=== PATIENT | male | born 1990 | race Two or more races ===

== ENCOUNTER 2019-03-13 15:08 | Emergency (ER) | payer MEDICAID ==
[~2019-03-13] VITALS: Ht 165.1 cm; Wt 63.5 kg
--- NOTE | 2019-03-13 15:25 | NUR ---
C/O BODY PAIN STARTED LAST NIGHT 05/22 PS. PATIENT A/OX4, BREATHING EVEN AND UNLABORED, NO SOB NOTED, PLACED ON THE MONITOR, GF AT BEDSIDE.
[2019-03-13] MEDS ORDERED: IV NS 0.9% 1,000 ML BAG IV ONE (15:30)
[2019-03-13] MEDS ORDERED: ONDANSETRON HCL/PF 4 MG/2 ML VIAL IVP ONE (15:30)
[2019-03-13] MEDS ORDERED: HYDROMORPHONE INJ 2 MG/ML DISP.SYRIN IV ONE (15:30)
[2019-03-13 15:35] LABS: BASOPHILS # (AUTO) 0.2 /CMM (0.0-0.2); BASOPHILS % (AUTO) 2.5 % (0.0-2.0); EOSINOPHILS % (AUTO) 0.5 % (0.0-6.0); HEMATOCRIT 37 % (39-51); HEMOGLOBIN 12.1 g/dL (13.5-17.5); LYMPHOCYTES # (AUTO) 0.5 /CMM (0.8-4.8); MEAN CORPUSCULAR HGB CONC 33 g/dl (31.0-36.0); MEAN CORPUSCULAR VOLUME 78 fL (80-96); MONOCYTES # (AUTO) 0.5 /CMM (0.1-1.30); MONOCYTES % (AUTO) 6.3 % (2.0-12.0); NEUTROPHILS # (AUTO) 6.2 /CMM (1.8-8.9); NEUTROPHILS % (AUTO) 83.7 % (43.0-81.0); PLATELET COUNT (AUTO) 172 /CMM (150-450); RED BLOOD CELL COUNT(AUTO) 4.76 MIL/uL (4.5-6.0); WHITE BLOOD COUNT (AUTO) 7.4 K/uL (4.3-11.0)
[2019-03-13] MEDS ORDERED: HYDROMORPHONE 1 MG/1 ML DISP.SYRIN ONE ×3 (15:35→17:02)
[2019-03-13] MEDS ORDERED: ONDANSETRON HCL/PF 4 MG/2 ML VIAL ONE (15:35)
[2019-03-13 15:49] LABS: ALANINE AMINOTRANSFERASE 25 U/L (12-78); ALBUMIN 4.2 g/dL (3.4-5.0); ALKALINE PHOSPHATASE 73 U/L (46-116); ASPARTATE AMINOTRANSFERASE 18 U/L (15-37); BILIRUBIN,DIRECT 0.2 mg/dL (0.0-0.2); CALCIUM, SERUM 9.3 mg/dL (8.5-10.1); CARBON DIOXIDE 26 mmol/L (21-32); CHLORIDE 104 mmol/L (98-107); GLUCOSE 105 mg/dL (74-106); POTASSIUM 3.6 mmol/L (3.5-5.1); SODIUM SERUM 139 mmol/L (136-145); TOTAL PROTEIN, SERUM 7.6 g/dL (6.4-8.2); UREA NITROGEN, BLOOD 7 mg/dL (7-18)
[2019-03-13] MEDS ORDERED: HYDROMORPHONE 1 MG/1 ML DISP.SYRIN IV ONE ×2 (17:00)
--- NOTE | 2019-03-13 17:22 | NUR ---
Rx provided, PIV removed, Patient discharged to home in stable condition. Written and verbal after care instructions given. Patient verbalizes understanding of instruction.
[2019-03-13 17:24] VITALS: BP 132/84
[2019-03-14] MEDS ORDERED: PROM6.2516 PO (09:29)
[2019-03-14] MEDS ORDERED: FOLI1TAB16 PO (09:29)
[2019-03-14] MEDS ORDERED: OXYC15TA2 PO (09:29)
[2019-03-14] MEDS ORDERED: HYDR500C2 PO (09:29)
== END 2019-03-13 17:24 | disposition home or self-care (01) ==
LOC: ER 15:16
DX: D57.80 Other sickle-cell disorders without crisis (principal); F12.10 Cannabis abuse, uncomplicated; R00.0 Tachycardia, unspecified; Z88.9 Allergy status to unspecified drugs, medicaments and biological substances
CPT/HCPCS: 36415; 71045; 80048; 80076; 84484; 85025; 85045; 93005; 96374; 96375; 96376; 99284; J1170 ×3; J2405

== ENCOUNTER 2019-03-14 07:58 | Inpatient (IN) | payer MEDICAID ==
[~2019-03-14] VITALS: Ht 165.1 cm; Wt 62.1 kg
--- NOTE | 2019-03-14 08:10 | NUR ---
GENERALIZED BODY ACHES X 2 DAYS, SEEN HERE LAST NIGHT FOR SAME REASON IM HAVING "SICKLE CELL FLARE UP" PATIENT A/OX4. NO DISTRESS NOTED, KEPT COMFORTABLE. WILL CONTINUE TO MONITOR. MD AT BEDSIDE FOR EVAL.
[2019-03-14] MEDS ORDERED: ONDANSETRON HCL/PF 4 MG/2 ML VIAL ONE ×2 (08:14→09:20)
[2019-03-14] MEDS ORDERED: HYDROMORPHONE 1 MG/1 ML DISP.SYRIN ONE (08:14)
[2019-03-14] MEDS ORDERED: KETOROLAC TROMETHAMINE 15 MG/ML VIAL ONE (08:28)
[2019-03-14] MEDS ORDERED: HYDROMORPHONE INJ 2 MG/ML DISP.SYRIN IV ONE (08:30)
[2019-03-14] MEDS ORDERED: KETOROLAC TROMETHAMINE INJ 30 MG/ML VIAL IV ONE (08:30)
[2019-03-14] MEDS ORDERED: IV NS 0.9% 1,000 ML BAG IV ONE (08:30)
[2019-03-14] MEDS ORDERED: ONDANSETRON HCL/PF 4 MG/2 ML VIAL IVP ONE ×2 (08:30→09:30)
[2019-03-14] MEDS ORDERED: FOLI1TAB16 PO (09:29)
[2019-03-14] MEDS ORDERED: HYDR500C2 PO (09:29)
[2019-03-14] MEDS ORDERED: PROM6.2516 PO (09:29)
[2019-03-14] MEDS ORDERED: OXYC15TA2 PO (09:29)
--- NOTE | 2019-03-14 09:33 | NUR ---
DR. LUCIANO MOMIN, ON-CALL FOR [employer].
[2019-03-14 09:36] LABS: BASOPHILS # (AUTO) 0.1 /CMM (0.0-0.2); EOSINOPHILS % (AUTO) 2.2 % (0.0-6.0); HEMATOCRIT 34 % (39-51); HEMOGLOBIN 11.4 g/dL (13.5-17.5); LYMPHOCYTES # (AUTO) 0.9 /CMM (0.8-4.8); MEAN CORPUSCULAR HGB CONC 33 g/dl (31.0-36.0); MEAN CORPUSCULAR VOLUME 77 fL (80-96); MONOCYTES # (AUTO) 0.5 /CMM (0.1-1.30); MONOCYTES % (AUTO) 11.6 % (2.0-12.0); NEUTROPHILS # (AUTO) 2.4 /CMM (1.8-8.9); NEUTROPHILS % (AUTO) 60.2 % (43.0-81.0); PLATELET COUNT (AUTO) 149 /CMM (150-450); RED BLOOD CELL COUNT(AUTO) 4.45 MIL/uL (4.5-6.0); WHITE BLOOD COUNT (AUTO) 3.9 K/uL (4.3-11.0)
[2019-03-14 09:42] LABS: CALCIUM, SERUM 8.6 mg/dL (8.5-10.1); CREATININE 0.9 mg/dL (0.6-1.3); POTASSIUM 3.5 mmol/L (3.5-5.1)
[2019-03-14] MEDS ORDERED: IV NS 0.9% 1,000 ML IV PRN (09:54)
[2019-03-14] MEDS ORDERED: Z GUARD REMEDY 2 OZ OINT TP PRN (10:00)
[2019-03-14] MEDS ORDERED: MAGNESIUM HYDROXIDE 30 ML UDC PO PRN (10:00)
[2019-03-14] MEDS ORDERED: ZOLPIDEM TARTRATE 5 MG TABLET PO PRN (10:00)
[2019-03-14] MEDS ORDERED: MAG HYDROX/AL HYDROX/SIMETH 30 ML UDC PO PRN (10:00)
[2019-03-14] MEDS ORDERED: ACETAMINOPHEN 325 MG TABLET PO PRN (10:00)
--- NOTE | 2019-03-14 10:23 | NUR ---
PATIENT TRANSFERRED TO ROOM 316-2 IN STABLE CONDITION.
[2019-03-14 10:30] VITALS: BP 154/78
[2019-03-14] MEDS: ONDANSETRON HCL/PF 4 MG/2 ML VIAL IVP PRN ×2 (10:53→23:13)
[2019-03-14] MEDS: HYDROMORPHONE INJ 2 MG/ML DISP.SYRIN IV PRN ×3 (10:54→20:46)
[2019-03-14] MEDS: Folic acid 1 MG in IV D5W 50 ML IV SCH (10:54)
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
[2019-03-14] MEDS ORDERED: HYDROCODONE/APAP 5/325MG 1 EACH TABLET PO PRN (14:30)
[2019-03-14 16:00] VITALS: BP_SYST 121; BP_SYST 139; BP_DIAS 80
--- NOTE | 2019-03-14 16:50 | NUR ---
RT Pt is awake and alert, pt refused EKG at this time.
[2019-03-14] MEDS ORDERED: oxyCODONE IR immediate release 5 MG PO PRN ×2 (17:30)
[2019-03-14] MEDS: HYDROXYUREA 500 MG CAPSULE PO SCH ×2 (17:30→18:01)
[2019-03-14] MEDS ORDERED: HYDROMORPHONE INJ 2 MG/ML DISP.SYRIN IV PRN (17:30)
--- NOTE | 2019-03-14 18:50 | NUR ---
RN NOTES ARCHITECTURAL DRAFTSMAN/RAJIV JUST SPOKE TO THE PT. RAJIV IS SPEAKING WITH CHARGE NURSE. CN AND ARCHITECTURAL DRAFTSMAN AWARE OF MD'S ORDERS AND PLANS. WILL CONTINUE TO MONITOR THE PT. PT IS ALSO FOR DR CAMACHO/PLATE STACKER CONSULT. WILL ENDORSE TO INCOMING NURSE FOR YARELI.
--- NOTE | 2019-03-14 19:09 | NUR ---
RN NOTES RN/ME JUST SPOKE TO NURSING DRIVER EDUCATION ROAD INSTRUCTOR/RAJIV REGARDING PT AND KYLER'S AGREEMENT REGARDING MEDICATIONS. PT IS NOW OKAY TO STICK WITH THE PLAN OF OXY [id number] PRN AND DILAUDID [id number] PRN AT THIS MOMENT. AND PT NOW STATING ZOFRAN IS NOT WORKING. RAJIV RECOMMENDED PROMETHAZINE FOR PT TO TAKE AN HOUR BEFORE OXYCODONE 15MG PRN. ED MADE AWARE, AWAITING FOR RESPONSE. DARRYL/ONEIDA MADE AWARE AND WILL ENDORSE TO INCOMING NIGHT NURSE.
--- NOTE | 2019-03-14 19:47 | NUR ---
MS RN CLOSING NOTES PT REMAINS IN BED RESTING. PT A/O X4. TOLERATING RA, WITH NO ACUTE RESPIRATORY DISTRESS NOTED. PT DOESN'T WANT TO PUT HIS O2 ON. STABLE AT RA. PT ON IVF NS AT 125ML/HR TO LAC G20, INTACT AND FLUID INFUSING WELL. PT ABLE TO MAKE NEEDS KNOWN. ALL NEEDS AND CARE ATTENDED. DURING ROOM ROUNDS/CHANGE OF SHIFT, PT DENIES PAIN AT THAT MOMENT. PT AWARE OF PLAN. PT KEPT COMFORTABLE. PT'S BED IN LOWEST, LOCKED POSITION WITH SR X2. ENDORSED TO GAS JOCKEY NURSE AND CN FOR YARELI.
[2019-03-14 20:00] VITALS: BP 137/82
--- NOTE | 2019-03-14 20:51 | NUR ---
dilaudid mariajose, patient complaints. patient complaining that he did not recieve his patient rights handbook upon admission. patient handbook located and given to patient. patient complains that he feels like he is being mistreated. states " I don't think its right how you have all been treating me. I feel like when I request to see a doctor, I should be able to see a doctor. I am gonna call my marina dry dock manager and he will be here in the am and he is going to know how you been mistreating me." patient informed that the doctors usually don't round at night. patient been complaining about pain management states his pain is not controlled. per report with Kaitlin mckenna these concerns were addressed and pain regiment was adjusted to what md wanted to order. pain management plan reviewed with patient. dilaudid administered as ordered. patient complains of pain 9/10 generalized pain. patient resting in bed alert oriented in no apparent distress. no sweating, no facial grimacing patient irritable. bed down locked call light in reach informed to call for assistance if needed.
--- NOTE | 2019-03-14 23:05 | NUR ---
shanika pichardo reports patient requesting to see me for nausea. patient seen in bed watching the door with eyes wide open with cheeks puffed out pointing at mouth patient iven emsis bin and patient spit out around 120 ml of clear liquid with white froth/spit. . patient reports he is feeling nauseous. patient reporting pain in abd 06/22. when patient offered zofran patient became silent and looked down. patient informed that if he is unable to respond I will have to come back. patient spoke up states "I just don't get it you guys dont care. I am here in pain and I am throwing up and you just aren't doing anything . still upset about pain management still reporting pain gen 06/22. aj studio operations engineer in charge in the room. reviewed pain management plan with patient. reviewed mediciations to help with nausea. patient agreeing to take the zofran for the nausea.
--- NOTE | 2019-03-14 23:13 | NUR ---
zofran prn. patient in a praying position in bed still reporting nauseas. patient states he is still feeling nauseous. zofran administered per md orders.
[2019-03-14] MEDS: IV NS 0.9% 1,000 ML IV PRN (23:31)
--- NOTE | 2019-03-14 23:33 | NUR ---
oxycodone prn patient reports having emesis. patient seen and administered oxycodone per md orders. for 9 gernalized pain. patient reporting that he threw up the medication in the bathroom shortly after medication being administered. patient sitting up in bed. patient did not save the emesis states he flushed it down toilte. patient informed if me as nurse am unable to see this emesis i cannot administer any additional doses.
--- NOTE | 2019-03-15 01:07 | NUR ---
patient seen resting in bed. has calm demeanor no apparent distress. offered sleep aid pill to help with sleeping patient refused. iv infusing. patient reports having emesis one time. 100 ml clear fluid found in emesis bag. reports pain medication was not very helpful. reviewed pain management plan with patient. verbalized understanding to call for assistance as needed.
--- NOTE | 2019-03-15 02:00 | NUR ---
TROPONIN BLOOD REFUSED. ONE PIECE EXPANSION MAKER HAND STATES THAT EARLIER PATIENT REFUSED TROPONIN BLOOD DRAW. BECAUSE IT WAS THE SECOND REFUSAL TEST WILL BE CANCELLED.
[2019-03-15] MEDS ORDERED: METOCLOPRAMIDE HCL 10 MG/2 ML VIAL IV PRN (02:30)
[2019-03-15] MEDS: HYDROMORPHONE INJ 2 MG/ML DISP.SYRIN IV PRN (02:33)
--- NOTE | 2019-03-15 02:54 | NUR ---
PAIN NAUSEA, PATIENT REQUESTING OXYCODONE BE DC'D PATIENT VOMITED X2 100 ML OF CLEAR LIQUID CAN BE HEARD RETCHING IN [address]. WHEN CONVERSING PATIENT APPERAS IN NO DISTRESS. PATIENT REQUESTING DILAUDID BE CHANGED BACK TO EVERY 4 HOURS AND TO DISCONTINUE THE OXYCODONE. REQUESTING PROMETHAZINE FOR VOMITING. PATIENT STARTES HES ALLERGIC TO REGLAN WHEN OFFERED. ALLERGIES UPDATED. MINA CONTACTED TO CHANGE PAIN MEDICINE AND ORDER FOR PROMETHAZINE NEW ORDERS RECIEVED.
[2019-03-15] MEDS ORDERED: PROMETHAZINE HCL 25 MG TABLET PO PRN (03:00)
[2019-03-15] MEDS ORDERED: PROMETHAZINE HCL 25 MG TABLET ONE (03:01)
--- NOTE | 2019-03-15 03:20 | NUR ---
PATIENT OFFERED PROMETHAZINE DOCTOR ORDERED. PATIENT HAD ANOTHER 100 ML OF CLEAR VOMIT WITH SPECKS OF BLOOD. PATIENT INFORMED WE SHOULD WAIT FOR HIM TO NOT HAVE ANY VOMITING BEFORE HE TAKES PROMETHAZINE SO IT CAN ABSORB. WHILE IN ROOM PATIENT BEGAN TO HUNCH OVER IN BED IN PRAYING POSITION. PATIENT MADE GROANING SOUNDS. PATIENT COMPLAINGING OF HAVING PAIN 06/22. PATIENT INFORMED THAT NO MORE PAIN MEDICATION WILL BE ABLE TO BE GIVEN ANY PAIN MEDICATION TILL IT WAS DUE AROUND 6:30 THIS AM. PATIENT UPSET AT THIS. PATIENT SAT UP IN BED RAISED HIS VOICE AND STATES "YOU DON'T KNOW WHAT THE FUCK YOUR DOING. YOU CANT CALL THE DOCTOR AND TELL THEM I AM IN PAIN. YOUR AN IDIOT! I KEEP TELLING YOU HOW TO TREAT MY SICKLE CELL BUT YOU ALL WONT DO IT." PATIENT INFORMED THAT I JUST CALLED THE DOCTOR AND HAD THE ORDERS CHANGED BACK TO HOW THEY WERE BEFORE. OXYCODONE WAS DISCONTINUED. HE CAN HAVE ANOTHER DOSE OF ZOFRAN LATER THIS AM. PATIENT INFORMED THAT I WILL HAVE TO RETURN WHEN HE CALMS DOWN AND SPEAK TO ME IN A NORMAL VOICE. CHARGE NURSE HALIE NOTIFIED.
--- NOTE | 2019-03-15 05:16 | NUR ---
PATIENT CHECKED CHECKED IN ON PATIENT. LIGHTS ARE OFF IV INFUSING. PATIENT IS RESTING QUITELY WITH COVERS OVER HEAD IN NO APPARENT DISTRESS. WILL CONT TO MONITOR.
[2019-03-15] MEDS: HYDROMORPHONE 1 MG/1 ML DISP.SYRIN IV PRN ×3 (06:15→14:39)
--- NOTE | 2019-03-15 06:20 | NUR ---
DILAUDID, PROMETHAZINE ADMINISTERED PATIENT REQUESTING DILAUDID FOR GEN PAIN OF 9/10 AND REPORTS HE IS MILDLY NAUSEOUS. DILUADID ADMINISTERED PER MD ORDERS AND PROMETHAZINE ADMINISTERED PER MD ORDERS AT PATIENTS REQUEST.
[2019-03-15 06:55] LABS: BASOPHILS % (AUTO) 0.6 % (0.0-2.0); EOSINOPHILS % (AUTO) 1.8 % (0.0-6.0); HEMATOCRIT 33 % (39-51); HEMOGLOBIN 10.7 g/dL (13.5-17.5); LYMPHOCYTES # (AUTO) 1.3 /CMM (0.8-4.8); LYMPHOCYTES % (AUTO) 35.7 % (20.0-44.0); MEAN CORPUSCULAR HGB CONC 32 g/dl (31.0-36.0); MEAN CORPUSCULAR VOLUME 78 fL (80-96); MONOCYTES # (AUTO) 0.3 /CMM (0.1-1.30); MONOCYTES % (AUTO) 8.9 % (2.0-12.0); NEUTROPHILS # (AUTO) 1.9 /CMM (1.8-8.9); PLATELET COUNT (AUTO) 146 /CMM (150-450); RED BLOOD CELL COUNT(AUTO) 4.27 MIL/uL (4.5-6.0); WHITE BLOOD COUNT (AUTO) 3.7 K/uL (4.3-11.0)
[2019-03-15 07:01] LABS: ALBUMIN 3.9 g/dL (3.4-5.0); BILIRUBIN,TOTAL 1.8 mg/dL (0.2-1.0); CALCIUM, SERUM 8.8 mg/dL (8.5-10.1); CREATININE 0.9 mg/dL (0.6-1.3); PHOSPHORUS 3.5 mg/dL (2.5-4.9); POTASSIUM 3.4 mmol/L (3.5-5.1); TOTAL PROTEIN, SERUM 6.9 g/dL (6.4-8.2)
[2019-03-15 08:00] VITALS: BP 115/71
--- NOTE | 2019-03-15 08:20 | NUR ---
MS RN NOTES PATIENT RECEIVED RESTING INSIDE ROOM. AWAKE, ALERT AND ORIENTED, VERBALLY RESPONSIVE AND RESPONDS TO VERBAL AND TACTILE STIMULI. NO ACUTE DISTRESS. PATIENT ASKING WHEN NEXT DILAUDID IS DUE, EXPLAINED MEDICATION SCHEDULE WITH PATIENT AND VERBALIZED UNDERSTANDING. PATIENT CALM AND RELAXED. ASKED WHEN HIS PHYSICIAN WILL COME AND SEE HIM, HOSPITALIST NEVAEH RYAN DNP PRESENT AT UNIT AWARE. WILL CONTINUE TO MONITOR
[2019-03-15] MEDS ORDERED: POTASSIUM CHLORIDE 20 MEQ TAB.PRT.SR PO ONE (08:30)
[2019-03-15] MEDS ORDERED: MENTHOL/CETYLPYRD (CEPACOL) 1 LOZ LOZENGE PO PRN (10:00)
[2019-03-15] MEDS: HYDROXYUREA 500 MG CAPSULE PO SCH (10:35)
[2019-03-15] MEDS: Folic acid 1 MG in IV D5W 50 ML IV SCH (10:35)
[2019-03-15] MEDS: IV NS 0.9% 1,000 ML IV PRN (10:36)
--- NOTE | 2019-03-15 11:28 | NUR ---
MS RN NOTES PATIENT SEEN AND EXAMINED BY NEVAEH RYAN DNP. WITH NEW ORDER TO CHANGE DIET TO CLEAR LIQUIDS. ORDER NOTED AND CARRIED OUT. PATIENT AWARE AND VERBALIZED UNDERSTANDING. ALSO WITH NEW ORDER FOR PARAPROFESSIONAL AIDE TEACHER REFERRAL. PARAPROFESSIONAL AIDE TEACHER AWARE. WILL CONTINUE TO MONITOR
--- NOTE | 2019-03-15 11:43 | NUR ---
LUCIO received a call from pt's physician Dr. Agarwal requesting for SW to give pt. location of clinics that specialize with Sickle Cell Disease. Pt's RN Dominick met with LUCIO regarding the aforementioned information. LUCIO gave him the contact/brochure for [facility] to give to the pt.
--- NOTE | 2019-03-15 16:15 | NUR ---
MS RN NOTES PATIENT DISCHARGED HOME TODAY. DISCHARGE INSTRUCTIONS AND EDUCATION PROVIDED TO PATIENT AND VERBALIZED UNDERSTANDING. PATIENT PROVIDED WITH BROCHURE FOR [facility] REGARDING SICKLE CELL. IV REMOVED, TIP INTACT, PRESSURE DRESSING PLACED ON SITE. PATIENT LEFT UNIT AT 1615 AMBULATORY IN STABLE CONDITION. NO ACUTE DISTRESS, DENIES ANY PAIN OR DISCOMFORT. WRITTEN PRESCRIPTION PROVIDED TO PATIENT. ACCOMPANIED BY NURSING STAFF TO PARKING LOT. HOSPITALIST AWARE OF DISCHARGE
[2019-03-16] MEDS ORDERED: FOLIC ACID 1 MG TABLET PO SCH (09:00)
== END 2019-03-15 16:15 | disposition home or self-care (01) | DRG 662 ==
LOC: ER 08:00 → MED 10:02
PROVIDERS: ADMIT Internal Medicine; ATTEND Nurse Practitioner Acute Care
DX: D57.00 Hb-SS disease with crisis, unspecified (principal); F17.200 Nicotine dependence, unspecified, uncomplicated; D63.8 Anemia in other chronic diseases classified elsewhere; Z76.5 Malingerer [conscious simulation]
CPT/HCPCS: 36415; 71045-TC; 80048-TC; 80053-TC; 80061-TC; 80076-TC; 83735-TC; 84100-TC; 84484-TC; 85025-TC; 85045-TC; 87081-TC; G0378; J1170; J1885; J2405; J2765; J3490; J7030; J7060; Q0169

== ENCOUNTER 2019-03-21 09:09 | Emergency (ER) | payer MEDICAID ==
[~2019-03-21] VITALS: Ht 121.9 cm; Wt 53.1 kg
[~2019-03-21 09:09] MED LIST: FOLI1TAB16 PO; HYDR500C2 PO; OXYC15TA2 PO; PROM6.2516 PO
--- NOTE | 2019-03-21 09:50 | NUR ---
DR ALCARAZ AT BEDSIDE FOR EVAL.
[2019-03-21] MEDS ORDERED: IV NS 0.9% 1,000 ML BAG IV ONE (10:00)
[2019-03-21] MEDS ORDERED: HYDROMORPHONE INJ 2 MG/ML DISP.SYRIN IV ONE (10:00)
--- NOTE | 2019-03-21 10:00 | NUR ---
IV LINE STARTED BLOOD DRAWN ANS SENT TO LAB.
[2019-03-21] MEDS ORDERED: HYDROMORPHONE 1 MG/1 ML DISP.SYRIN ONE (10:02)
[2019-03-21] MEDS ORDERED: ONDANSETRON HCL/PF 4 MG/2 ML VIAL ONE (10:02)
[2019-03-21 10:06] LABS: BASOPHILS # (AUTO) 0.2 /CMM (0.0-0.2); BASOPHILS % (AUTO) 4.4 % (0.0-2.0); EOSINOPHILS % (AUTO) 2.7 % (0.0-6.0); HEMATOCRIT 37 % (39-51); HEMOGLOBIN 12.1 g/dL (13.5-17.5); LYMPHOCYTES # (AUTO) 0.3 /CMM (0.8-4.8); LYMPHOCYTES % (AUTO) 8.3 % (20.0-44.0); MEAN CORPUSCULAR HGB CONC 33 g/dl (31.0-36.0); MEAN CORPUSCULAR VOLUME 78 fL (80-96); MONOCYTES # (AUTO) 0.2 /CMM (0.1-1.30); MONOCYTES % (AUTO) 6.1 % (2.0-12.0); NEUTROPHILS # (AUTO) 3.2 /CMM (1.8-8.9); NEUTROPHILS % (AUTO) 78.5 % (43.0-81.0); PLATELET COUNT (AUTO) 139 /CMM (150-450); RED BLOOD CELL COUNT(AUTO) 4.76 MIL/uL (4.5-6.0); WHITE BLOOD COUNT (AUTO) 4.1 K/uL (4.3-11.0)
--- NOTE | 2019-03-21 10:09 | NUR ---
PT C/O NAUSEA. DR ALCARAZ AWARE. ZOFRAN 4MG IVP ORDERED. VERBAL. CARRIED OUT.
[2019-03-21 10:20] LABS: ALBUMIN 4.1 g/dL (3.4-5.0); BILIRUBIN,DIRECT 0.3 mg/dL (0.0-0.2); BILIRUBIN,TOTAL 1.6 mg/dL (0.2-1.0); CALCIUM, SERUM 9.4 mg/dL (8.5-10.1); CREATININE 0.9 mg/dL (0.6-1.3); POTASSIUM 3.8 mmol/L (3.5-5.1); TOTAL PROTEIN, SERUM 7.6 g/dL (6.4-8.2)
[2019-03-21] MEDS ORDERED: IV NS 0.9% 500 ML BAG IV ONE (11:00)
[2019-03-21] MEDS ORDERED: ONDANSETRON HCL/PF 4 MG/2 ML VIAL IVP ONE (11:00)
[2019-03-21] MEDS ORDERED: oxyCODONE/APAP (5/325 MG) 1 UDTAB TABLET PO ONE (11:30)
[2019-03-21] MEDS ORDERED: ONDANSETRON 4 MG TAB.RAPDIS SL ONE (11:30)
[2019-03-21] MEDS ORDERED: ONDANSETRON 4 MG TAB.RAPDIS ONE (11:35)
[2019-03-21] MEDS ORDERED: oxyCODONE/APAP (5/325 MG) 1 UDTAB TABLET ONE (11:35)
--- NOTE | 2019-03-21 11:52 | NUR ---
Patient discharged to home in stable condition. Written and verbal after care instructions given. Patient verbalizes understanding of instruction.IV removed. Catheter intact and site benign. Pressure and 4x4 applied to site. No bleeding noted.
[2019-03-21 11:53] VITALS: BP 135/97
== END 2019-03-21 11:57 | disposition home or self-care (01) ==
LOC: ER 09:11
DX: D57.80 Other sickle-cell disorders without crisis (principal); F11.20 Opioid dependence, uncomplicated; R11.2 Nausea with vomiting, unspecified; R00.0 Tachycardia, unspecified; Z88.9 Allergy status to unspecified drugs, medicaments and biological substances; Z88.8 Allergy status to other drugs, medicaments and biological substances
CPT/HCPCS: 36415; 80048; 80076; 85025; 85045; 96361; 96374; 96375; 99283; J1170; J2405; J7030; J7040; Q0162

== ENCOUNTER 2019-03-28 13:11 | Emergency (ER) | payer MEDICAID ==
[~2019-03-28] VITALS: Ht 165.1 cm; Wt 63.0 kg
--- NOTE | 2019-03-28 13:28 | NUR ---
PT BIBSELF FOR GEN BODY ACHES, HX OF SICKLE CELL; PT AAOX4, PT ON MONITOR, PT TO BED 13, NAD NOTED, VSS, PENDING MD PEREYRA
[2019-03-28] MEDS ORDERED: IV NS 0.9% 1,000 ML BAG IV ONE (13:30)
[2019-03-28] MEDS ORDERED: KETOROLAC TROMETHAMINE INJ 30 MG/ML VIAL IV ONE (13:30)
[2019-03-28] MEDS ORDERED: ONDANSETRON HCL/PF 4 MG/2 ML VIAL ONE (13:44)
[2019-03-28] MEDS ORDERED: HYDROMORPHONE 1 MG/1 ML DISP.SYRIN ONE (13:45)
[2019-03-28] MEDS ORDERED: ONDANSETRON HCL/PF 4 MG/2 ML VIAL IV ONE (14:00)
[2019-03-28] MEDS ORDERED: HYDROMORPHONE INJ 0.5 MG/0.5 ML SYRINGE IV ONE (14:00)
--- NOTE | 2019-03-28 14:43 | NUR ---
Patient discharged to home in stable condition. Written and verbal after care instructions given. Patient verbalizes understanding of instruction. IV removed. Catheter intact and site benign. Pressure and 4x4 applied to site. No bleeding noted.
[2019-03-28 14:46] VITALS: BP 139/90
== END 2019-03-28 14:48 | disposition home or self-care (01) ==
LOC: ER 13:12
DX: D57.1 Sickle-cell disease without crisis (principal); R11.2 Nausea with vomiting, unspecified; Z88.8 Allergy status to other drugs, medicaments and biological substances; Z79.899 Other long term (current) drug therapy
CPT/HCPCS: 96361; 96374; 96375; 99283; J1170; J2405; J7030

== ENCOUNTER 2019-04-10 18:25 | Emergency (ER) | payer MEDICAID ==
[~2019-04-10] VITALS: Ht 165.1 cm; Wt 63.5 kg
[2019-04-10] MEDS ORDERED: KETOROLAC TROMETHAMINE INJ 30 MG/ML VIAL IV ONE (18:30)
--- NOTE | 2019-04-10 18:42 | NUR ---
DIFFUSE ABDOMINAL PAIN W/ N/V. ALSO C/O RLE PAIN/NUMBNESS SINCE YESTERDAY. ABD PAIN IS SHARP AND 8/10. PT MADE COMFORTABLE, GIRLFRIEND AT BEDSIDE. READY FOR EVAL.
[2019-04-10] MEDS ORDERED: KETOROLAC TROMETHAMINE 15 MG/ML VIAL ONE ×2 (18:44→20:34)
[2019-04-10] MEDS ORDERED: DEXAMETHASONE SOD PHOSPHATE 10 MG/ML VIAL ONE (18:52)
[2019-04-10] MEDS ORDERED: ONDANSETRON HCL/PF 4 MG/2 ML VIAL ONE (18:52)
[2019-04-10] MEDS ORDERED: HYDROMORPHONE 1 MG/1 ML DISP.SYRIN ONE ×2 (18:53→20:34)
[2019-04-10] MEDS: IV NS 0.9% 1,000 ML BAG IV ONE (19:11)
[2019-04-10] MEDS: HYDROMORPHONE INJ 0.5 MG/0.5 ML SYRINGE IV ONE ×2 (19:12→20:42)
[2019-04-10] MEDS: ONDANSETRON HCL/PF - ER 4 MG/2 ML VIAL IV ONE (19:12)
[2019-04-10] MEDS: KETOROLAC TROMETHAMINE INJ 30 MG/ML VIAL IV ONE ×2 (19:12→20:42)
[2019-04-10] MEDS: DEXAMETHASONE SOD PHOSPHATE 10 MG/ML VIAL IV ONE (19:12)
--- NOTE | 2019-04-10 19:12 | NUR ---
VERBAL ORDER FOR TORADOL 15MG GIVEN
[2019-04-10 19:16] LABS: CALCIUM, SERUM 9.4 mg/dL (8.5-10.1); CREATININE 1.2 mg/dL (0.6-1.3); POTASSIUM 4.1 mmol/L (3.5-5.1)
--- NOTE | 2019-04-10 19:52 | NUR ---
PT ASKING FOR MORE PAIN MEDS. PA NOTIFIED
[2019-04-10 20:16] LABS: BASOPHILS # (AUTO) 0.1 /CMM (0.0-0.2); BASOPHILS % (AUTO) 2.5 % (0.0-2.0); EOSINOPHILS % (AUTO) 1.6 % (0.0-6.0); HEMATOCRIT 38 % (39-51); HEMOGLOBIN 12.4 g/dL (13.5-17.5); LYMPHOCYTES # (AUTO) 0.4 /CMM (0.8-4.8); LYMPHOCYTES % (AUTO) 9.1 % (20.0-44.0); MEAN CORPUSCULAR HGB CONC 33 g/dl (31.0-36.0); MEAN CORPUSCULAR VOLUME 77 fL (80-96); MONOCYTES # (AUTO) 0.5 /CMM (0.1-1.30); MONOCYTES % (AUTO) 10.3 % (2.0-12.0); NEUTROPHILS # (AUTO) 3.7 /CMM (1.8-8.9); NEUTROPHILS % (AUTO) 76.5 % (43.0-81.0); PLATELET COUNT (AUTO) 189 /CMM (150-450); RED BLOOD CELL COUNT(AUTO) 4.91 MIL/uL (4.5-6.0); WHITE BLOOD COUNT (AUTO) 4.8 K/uL (4.3-11.0)
--- NOTE | 2019-04-10 20:45 | NUR ---
IV removed. Catheter intact and site benign. Pressure and 4x4 applied to site. No bleeding noted.Patient discharged to home in stable condition. Written and verbal after care instructions given. Patient verbalizes understanding of instruction.
[2019-04-10 21:23] VITALS: BP 123/87
[2019-04-10 21:56] LABS: BAND % (MANUAL) 1 % (0.0-5.0); LYMPHOCYTES % (MANUAL) 26 % (16-48); MONOCYTES % (MANUAL) 6 % (0-11.0); NEUTROPHILS % (MANUAL) 67 (42-76)
== END 2019-04-10 20:45 | disposition home or self-care (01) ==
LOC: ER 18:25
DX: D57.1 Sickle-cell disease without crisis (principal); R11.2 Nausea with vomiting, unspecified; G89.29 Other chronic pain; F91.9 Conduct disorder, unspecified; Z88.8 Allergy status to other drugs, medicaments and biological substances; Z79.899 Other long term (current) drug therapy
CPT/HCPCS: 36415; 80048; 85025; 85045; 96361; 96374; 96375; 96376; 99283; J1100; J1170 ×2; J1885 ×3; J2405; J7030

== ENCOUNTER 2019-04-14 09:18 | Emergency (ER) | payer MEDICAID ==
[~2019-04-14] VITALS: Ht 165.1 cm; Wt 63.5 kg
--- NOTE | 2019-04-14 09:23 | NUR ---
PT BIBSELF FOR GEN BODY ACHES; PT AAOX4,-SOB, NAD NOTED, PT TO BED 6, VSS, PT ON MONITOR, PENDING MD PEREYRA
[2019-04-14] MEDS ORDERED: oxyCODONE/APAP (5/325 MG) 1 UDTAB TABLET ONE ×2 (09:54→11:02)
[2019-04-14] MEDS ORDERED: oxyCODONE/APAP (5/325 MG) 1 UDTAB TABLET PO ONE (10:00)
[2019-04-14 10:08] LABS: BASOPHILS % (AUTO) 0.5 % (0.0-2.0); EOSINOPHILS % (AUTO) 1.7 % (0.0-6.0); HEMATOCRIT 38 % (39-51); HEMOGLOBIN 12.3 g/dL (13.5-17.5); LYMPHOCYTES # (AUTO) 0.9 /CMM (0.8-4.8); LYMPHOCYTES % (AUTO) 22.1 % (20.0-44.0); MEAN CORPUSCULAR HGB CONC 33 g/dl (31.0-36.0); MEAN CORPUSCULAR VOLUME 79 fL (80-96); MONOCYTES # (AUTO) 0.4 /CMM (0.1-1.30); MONOCYTES % (AUTO) 9.4 % (2.0-12.0); NEUTROPHILS # (AUTO) 2.8 /CMM (1.8-8.9); NEUTROPHILS % (AUTO) 66.3 % (43.0-81.0); PLATELET COUNT (AUTO) 187 /CMM (150-450); WHITE BLOOD COUNT (AUTO) 4.3 K/uL (4.3-11.0)
[2019-04-14 10:14] LABS: CALCIUM, SERUM 9.2 mg/dL (8.5-10.1); CREATININE 0.9 mg/dL (0.6-1.3); POTASSIUM 3.7 mmol/L (3.5-5.1)
[2019-04-14 11:00] VITALS: BP 139/89
--- NOTE | 2019-04-14 11:05 | NUR ---
PT REQUESTED TO SPEAK WITH NURSING SUP CALLED NURSING SUP
== END 2019-04-14 11:31 | disposition home or self-care (01) ==
LOC: ER 09:18
DX: G89.29 Other chronic pain (principal); E86.0 Dehydration; Z88.9 Allergy status to unspecified drugs, medicaments and biological substances; Z88.8 Allergy status to other drugs, medicaments and biological substances
CPT/HCPCS: 36415; 80048-TC; 85025-TC; 85045-TC; 85660

== ENCOUNTER 2019-05-05 22:44 | Emergency (ER) | payer MEDICAID ==
[~2019-05-05] VITALS: Ht 165.1 cm; Wt 63.5 kg
--- NOTE | 2019-05-05 23:20 | NUR ---
rosana greco at bedside to dann barker.
[2019-05-05] MEDS ORDERED: oxyCODONE/APAP (5/325 MG) 1 UDTAB TABLET ONE (23:28)
[2019-05-05] MEDS ORDERED: IV NS 0.9% 1,000 ML BAG IV ONE (23:30)
[2019-05-05] MEDS ORDERED: oxyCODONE/APAP (5/325 MG) 1 UDTAB TABLET PO ONE (23:30)
[2019-05-05] MEDS ORDERED: ONDANSETRON HCL/PF 4 MG/2 ML VIAL ONE (23:36)
--- NOTE | 2019-05-05 23:40 | NUR ---
pt medicated as ordered.
[2019-05-05 23:43] LABS: CALCIUM, SERUM 8.9 mg/dL (8.5-10.1); CREATININE 1.1 mg/dL (0.6-1.3); POTASSIUM 3.4 mmol/L (3.5-5.1)
[2019-05-05 23:49] LABS: ALBUMIN 3.8 g/dL (3.4-5.0); BILIRUBIN,DIRECT 0.2 mg/dL (0.0-0.2)
[2019-05-05 23:59] LABS: BASOPHILS # (AUTO) 0.1 /CMM (0.0-0.2); BASOPHILS % (AUTO) 1.6 % (0.0-2.0); EOSINOPHILS % (AUTO) 5.9 % (0.0-6.0); HEMATOCRIT 36 % (39-51); HEMOGLOBIN 11.8 g/dL (13.5-17.5); LYMPHOCYTES # (AUTO) 0.5 /CMM (0.8-4.8); MEAN CORPUSCULAR HGB CONC 33 g/dl (31.0-36.0); MEAN CORPUSCULAR VOLUME 77 fL (80-96); MONOCYTES # (AUTO) 0.4 /CMM (0.1-1.30); MONOCYTES % (AUTO) 8.9 % (2.0-12.0); NEUTROPHILS # (AUTO) 3.1 /CMM (1.8-8.9); NEUTROPHILS % (AUTO) 71.6 % (43.0-81.0); PLATELET COUNT (AUTO) 172 /CMM (150-450); RED BLOOD CELL COUNT(AUTO) 4.62 MIL/uL (4.5-6.0); WHITE BLOOD COUNT (AUTO) 4.3 K/uL (4.3-11.0)
[2019-05-06] MEDS ORDERED: ONDANSETRON 4 MG TAB.RAPDIS PO ONE
[2019-05-06] MEDS ORDERED: ONDANSETRON HCL/PF 4 MG/2 ML VIAL IM ONE (00:30)
--- NOTE | 2019-05-06 00:36 | NUR ---
IV removed. Catheter intact and site benign. Pressure and 4x4 applied to site. No bleeding noted. Patient discharged to home in stable condition. Written and verbal after care instructions given. Patient verbalizes understanding of instruction. pt aaox4 no acute distress noted, resp even and unlabored. ambulatory with a steady gait noted. advice pt not to drive or operate any machinery due to pt was given narcotic medicine. pt verbalize understanding.
[2019-05-06 00:43] VITALS: BP 127/61
== END 2019-05-06 00:44 | disposition home or self-care (01) ==
LOC: ER 22:47
DX: G89.29 Other chronic pain (principal); Z76.5 Malingerer [conscious simulation]; Z88.8 Allergy status to other drugs, medicaments and biological substances
CPT/HCPCS: 36415; 80048; 80076; 85025; 85045; 96374; 99283; J2405; J7030

== ENCOUNTER 2019-05-15 10:43 | Emergency (ER) | payer MEDICAID, OTHER ==
[~2019-05-15] VITALS: Ht 165.1 cm; Wt 63.5 kg
--- NOTE | 2019-05-15 11:20 | NUR ---
PT RECD' TO ER C/O PAIN ABD 05/22 IV STARTED LABS DRAWN SENT TO LAB . VSS PAIN MEDS AND ZOFRAN GIVEN PER MD ORDER AWAITING EVALUATION BY ER PROVIDER.
[2019-05-15] MEDS ORDERED: ONDANSETRON HCL/PF 4 MG/2 ML VIAL ONE (11:44)
[2019-05-15] MEDS ORDERED: HYDROMORPHONE 1 MG/1 ML DISP.SYRIN ONE ×2 (11:44→13:00)
[2019-05-15] MEDS ORDERED: ONDANSETRON HCL/PF 4 MG/2 ML VIAL IVP ONE (12:00)
[2019-05-15] MEDS ORDERED: HYDROMORPHONE 1 MG/1 ML DISP.SYRIN IV ONE ×2 (12:00→13:00)
[2019-05-15] MEDS ORDERED: IV NS 0.9% 1,000 ML BAG IV ONE (12:00)
[2019-05-15 12:03] LABS: BASOPHILS # (AUTO) 0.1 /CMM (0.0-0.2); BASOPHILS % (AUTO) 1.7 % (0.0-2.0); CALCIUM, SERUM 9.2 mg/dL (8.5-10.1); HEMATOCRIT 38 % (39-51); HEMOGLOBIN 12.4 g/dL (13.5-17.5); LYMPHOCYTES # (AUTO) 1.2 /CMM (0.8-4.8); LYMPHOCYTES % (AUTO) 28.5 % (20.0-44.0); MEAN CORPUSCULAR HGB CONC 33 g/dl (31.0-36.0); MEAN CORPUSCULAR VOLUME 78 fL (80-96); MONOCYTES # (AUTO) 0.2 /CMM (0.1-1.30); MONOCYTES % (AUTO) 5.9 % (2.0-12.0); NEUTROPHILS # (AUTO) 2.6 /CMM (1.8-8.9); NEUTROPHILS % (AUTO) 61.9 % (43.0-81.0); PLATELET COUNT (AUTO) 152 /CMM (150-450); POTASSIUM 3.7 mmol/L (3.5-5.1); RED BLOOD CELL COUNT(AUTO) 4.87 MIL/uL (4.5-6.0); WHITE BLOOD COUNT (AUTO) 4.2 K/uL (4.3-11.0)
[2019-05-15 12:08] LABS: ALBUMIN 4.2 g/dL (3.4-5.0); BILIRUBIN,DIRECT 0.2 mg/dL (0.0-0.2); BILIRUBIN,TOTAL 1.3 mg/dL (0.2-1.0); TOTAL PROTEIN, SERUM 7.6 g/dL (6.4-8.2)
[2019-05-15 12:36] LABS: EOSINOPHILS % (MANUAL) 1 % (0-4); LYMPHOCYTES % (MANUAL) 35 % (16-48); MONOCYTES % (MANUAL) 6 % (0-11.0); NEUTROPHILS % (MANUAL) 58 (42-76)
--- NOTE | 2019-05-15 13:04 | NUR ---
PT C/O PAIN GIVEN DILAUDID 1 MG IVP PER MD
[2019-05-15 14:13] VITALS: BP 127/82
== END 2019-05-15 14:14 | disposition home or self-care (01) ==
LOC: ER 10:43
DX: D57.1 Sickle-cell disease without crisis (principal); R11.0 Nausea; Z88.8 Allergy status to other drugs, medicaments and biological substances
CPT/HCPCS: 36415; 80048; 80076; 83690; 85025; 85045; 86850; 96374; 96375; 96376; 99283; J1170 ×2; J2405; J7030

== ENCOUNTER 2019-05-31 17:46 | Emergency (ER) | payer OTHER ==
[~2019-05-31] VITALS: Ht 167.6 cm; Wt 63.5 kg
--- NOTE | 2019-05-31 17:54 | NUR ---
"C/C GENERALIZED PAIN AND NAUSEA VOMITING SINCES YESTERDAY" PT AAOX4, -SOB, NAD NOTED, VSS, PENDING MD PEREYRA
[2019-05-31] MEDS ORDERED: oxyCODONE/APAP (5/325 MG) 1 UDTAB TABLET ONE ×2 (18:10→18:23)
[2019-05-31] MEDS ORDERED: ONDANSETRON HCL/PF 4 MG/2 ML VIAL ONE (18:10)
[2019-05-31 18:27] LABS: BASOPHILS # (AUTO) 0.2 /CMM (0.0-0.2); BASOPHILS % (AUTO) 3.7 % (0.0-2.0); EOSINOPHILS % (AUTO) 1.4 % (0.0-6.0); HEMATOCRIT 37 % (39-51); HEMOGLOBIN 12.1 g/dL (13.5-17.5); LYMPHOCYTES # (AUTO) 0.7 /CMM (0.8-4.8); LYMPHOCYTES % (AUTO) 16.6 % (20.0-44.0); MEAN CORPUSCULAR HGB CONC 33 g/dl (31.0-36.0); MEAN CORPUSCULAR VOLUME 79 fL (80-96); MONOCYTES # (AUTO) 0.6 /CMM (0.1-1.30); MONOCYTES % (AUTO) 13.1 % (2.0-12.0); NEUTROPHILS # (AUTO) 2.9 /CMM (1.8-8.9); NEUTROPHILS % (AUTO) 65.2 % (43.0-81.0); PLATELET COUNT (AUTO) 175 /CMM (150-450); RED BLOOD CELL COUNT(AUTO) 4.73 MIL/uL (4.5-6.0); WHITE BLOOD COUNT (AUTO) 4.5 K/uL (4.3-11.0)
[2019-05-31] MEDS ORDERED: ONDANSETRON HCL/PF 4 MG/2 ML VIAL IVP ONE (18:30)
[2019-05-31] MEDS ORDERED: IV NS 0.9% 1,000 ML BAG IV ONE (18:30)
[2019-05-31] MEDS ORDERED: oxyCODONE/APAP (5/325 MG) 1 UDTAB TABLET PO ONE ×2 (18:30)
[2019-05-31 18:35] LABS: CALCIUM, SERUM 9.1 mg/dL (8.5-10.1); CREATININE 1.1 mg/dL (0.6-1.3); POTASSIUM 3.6 mmol/L (3.5-5.1)
[2019-05-31 18:53] VITALS: BP 121/80
== END 2019-05-31 19:13 | disposition home or self-care (01) ==
LOC: ER 17:48
DX: D57.80 Other sickle-cell disorders without crisis (principal); R11.2 Nausea with vomiting, unspecified; F12.10 Cannabis abuse, uncomplicated; Z88.9 Allergy status to unspecified drugs, medicaments and biological substances; Z88.8 Allergy status to other drugs, medicaments and biological substances
CPT/HCPCS: 36415; 80048; 85025; 85045; 96361; 96374; 99283; J2405; J7030

== ENCOUNTER 2019-07-22 20:09 | Emergency (ER) | payer OTHER ==
[~2019-07-22] VITALS: Ht 165.1 cm; Wt 63.5 kg
[2019-07-22 20:25] VITALS: BP 122/95
--- NOTE | 2019-07-22 20:45 | NUR ---
PT REFUSING ALL CARE AND REQUESTING DILAUDID FOR PAIN MEDICATION. PT REQUESTING TO SPEAK WITH NURSING AIR CONDITIONING MANAGER IF NOT GIVEN DILAUDID. MD AWARE. MD INSTRUCTED TO NOTIFY NURSING AIR CONDITIONING MANAGER.
--- NOTE | 2019-07-22 20:50 | NUR ---
CALLED NURSING JOINER APPRENTICE TO SPEAK WIHT PATIENT.
--- NOTE | 2019-07-22 20:56 | NUR ---
PT DECIDED TO LEAVE AMA PRIOR TO SPEAKING WITH NURSING GUIDEMAN.
--- NOTE | 2019-07-22 20:58 | NUR ---
Patient does not wish to proceed with medical care recommended by Dr. SHAH. Patient given information related to possible complications, up to and including , which could occur as a result of leaving the hospital at this time. Patient verbalizes understanding of risks involved due to leaving against medical advice. Patient REFUSED TO sign AMA form.
[2019-07-22] MEDS ORDERED: IV NS 0.9% 1,000 ML BAG IV ONE (21:00)
[2019-07-22] MEDS ORDERED: oxyCODONE/APAP (5/325 MG) 1 UDTAB TABLET PO ONE (21:00)
[2019-07-22] MEDS ORDERED: ONDANSETRON HCL/PF 4 MG/2 ML VIAL IVP ONE (21:00)
== END 2019-07-22 21:03 | disposition home or self-care (01) ==
LOC: ER 20:17
DX: G89.29 Other chronic pain (principal); R10.9 Unspecified abdominal pain; D57.1 Sickle-cell disease without crisis; Z88.8 Allergy status to other drugs, medicaments and biological substances; Z79.899 Other long term (current) drug therapy

== ENCOUNTER 2019-09-19 14:19 | Emergency (ER) | payer OTHER ==
[~2019-09-19] VITALS: Ht 165.1 cm; Wt 61.2 kg
[2019-09-19] MEDS ORDERED: IV NS 0.9% 1,000 ML BAG IV ONE (14:30)
[2019-09-19] MEDS ORDERED: ONDANSETRON HCL/PF 4 MG/2 ML VIAL IVP ONE (14:30)
[2019-09-19] MEDS ORDERED: HYDROMORPHONE INJ 2 MG/ML DISP.SYRIN IV ONE (14:30)
--- NOTE | 2019-09-19 14:30 | NUR ---
C/O GENERALIZED BODY ACHE SINCE LAST NIGHT. PATIENT A/OX4, BREATHING EVEN AND UNLABORED, NO SOB NOTED, NEEDS ATTENDED.
[2019-09-19] MEDS ORDERED: ONDANSETRON HCL/PF 4 MG/2 ML VIAL ONE (14:31)
[2019-09-19] MEDS ORDERED: HYDROMORPHONE 1 MG/1 ML DISP.SYRIN ONE (14:32)
[2019-09-19] MEDS ORDERED: oxyCODONE/APAP (5/325 MG) 1 UDTAB TABLET ONE (15:08)
[2019-09-19 15:20] VITALS: BP 146/86
--- NOTE | 2019-09-19 15:21 | NUR ---
IV removed. Catheter intact and site benign. Pressure and 4x4 applied to site. No bleeding noted. Patient discharged to home in stable condition. Written and verbal after care instructions given. Patient verbalizes understanding of instruction.
[2019-09-19] MEDS ORDERED: oxyCODONE/APAP (5/325 MG) 1 UDTAB TABLET PO ONE (15:30)
== END 2019-09-19 15:21 | disposition home or self-care (01) ==
LOC: ER 14:22
DX: G89.29 Other chronic pain (principal); D57.1 Sickle-cell disease without crisis; R11.2 Nausea with vomiting, unspecified; Z98.890 Other specified postprocedural states; Z88.8 Allergy status to other drugs, medicaments and biological substances; Z79.899 Other long term (current) drug therapy
CPT/HCPCS: 96361; 96374; 96375; 99283; J1170; J2405; J7030